=== PATIENT | female | born 1960 | race Two or more races ===

== ENCOUNTER → 2019-09-21 | Outpatient (CLI) | payer OTHER | END | disposition home or self-care (01) | LOC: RAD 07:33 | DX: M54.2 Cervicalgia (principal); M54.5 Low back pain; N39.0 Urinary tract infection, site not specified; N20.0 Calculus of kidney; N29 Other disorders of kidney and ureter in diseases classified elsewhere ==

== ENCOUNTER 2020-01-13 09:03 | Outpatient (CLI) | payer OTHER | END 2020-01-13 09:14 | disposition home or self-care (01) | LOC: TOM 09:03 | DX: N20.0 Calculus of kidney (principal); R31.29 Other microscopic hematuria ==

== ENCOUNTER 2020-06-29 08:18 | Outpatient (CLI) | payer OTHER | END 2020-06-29 09:44 | disposition home or self-care (01) | LOC: SONOGRAMA 08:18 | PROVIDERS: ATTEND Pathology Anatomic Pathology & Clinical Pathology | DX: N63.20 Unspecified lump in the left breast, unspecified quadrant (principal) ==